=== PATIENT | female | born 1975 ===

== ENCOUNTER 2020-06-30 01:46 | Inpatient (IN) | payer OTHER ==
[~2020-06-30] VITALS: Ht 170.2 cm; Wt 75.5 kg
[2020-06-30 02:16] LABS: BASOPHILS # (AUTO) 0.01 x10^3/uL (0-0.1); BASOPHILS % (AUTO) 0 % (0-1); EOSINOPHILS # (AUTO) 0.05 x10^3/uL (0-0.4); EOSINOPHILS % (AUTO) 0 % (1-7); LYMPHOCYTES # (AUTO) 1.15 x10^3/uL (1-3.4); LYMPHOCYTES % (AUTO) 9 % (22-44); MD NO; MEAN CORPUSCULAR HEMOGLOBIN 33.4 pg (27.0-34.8); MEAN CORPUSCULAR HGB CONC 34.1 g/dL (32.4-35.8); MEAN PLATELET VOLUME 9.2 fL (7.4-10.4); MONOCYTES # (AUTO) 0.72 x10^3/uL (0.2-0.8); MONOCYTES % (AUTO) 6 % (2-9); NEUTROPHILS # (AUTO) 10.56 x10^3/uL (1.8-6.8); NEUTROPHILS % (AUTO) 85 % (42-75); PLATELET COUNT 218 x10^3/uL (130-400); RED BLOOD COUNT 4.04 x10^6/uL (3.82-5.3); RED CELL DISTRIBUTION WIDTH 13.1 % (9.6-15.2)
[2020-06-30] MEDS ORDERED: ONDANSETRON 2MG/ML, 2ML ONE (02:27)
[2020-06-30] MEDS ORDERED: MORPHINE SULFATE 4 MG/ML, 1ML ONE ×2 (02:27→04:09)
[2020-06-30 02:28] LABS: ALANINE AMINOTRANSFERASE 35 U/L (12-78); ALBUMIN 3.3 g/dL (3.4-5.0); ANION GAP 9 mmol/L (5-15); CALCIUM 8.8 mg/dL (8.5-10.1); CHLORIDE 106 mmol/L (98-107); CREATININE 0.75 mg/dL (0.55-1.02)
[2020-06-30] MEDS ORDERED: ONDANSETRON 2MG/ML, 2ML IVPush ONE (02:30)
[2020-06-30] MEDS ORDERED: PLEASE ENTER ALLERGIES MC SCH (02:30)
[2020-06-30] MEDS ORDERED: SODIUM CHLORIDE FLUSH 10ML SYR IVF ONE (02:30)
[2020-06-30 02:33] LABS: ALKALINE PHOSPHATASE 85 U/L (45-117); BILIRUBIN,TOTAL 0.2 mg/dL (0.2-1.0); TOTAL PROTEIN 7.4 g/dL (6.4-8.2)
[2020-06-30] MEDS: MORPHINE SULFATE 4 MG/ML, 1ML IVPush PRN ×2 (02:40→04:15)
--- NOTE | 2020-06-30 02:40 | NUR ---
PT TO ED WITH RIGHT SIDED ABDOMINAL PAIN, DENIES FLANK PAIN, OR URINARY SYMPTOMS. PT DENIES HX OF SAME. PT PLACED ON MONITORING, IV PLACED, MEDICATED PER MAR, CALL LIGHT WITHIN REACH, FAMILY AT BS FOR SUPPORT.
[2020-06-30 03:02] LABS: HCG UR SG 1.016 (1.003-1.030)
[2020-06-30] MEDS ORDERED: OMNIPAQUE 350 MG/ML, 100ML BOTTLE ONE (03:09)
[2020-06-30 03:13] LABS: MICROSCOPIC INDICATED
[2020-06-30] MEDS ORDERED: CEFTRIAXONE PMX 1GM/50ML 50 ML ONE (04:09)
[2020-06-30] MEDS: CEFTRIAXONE PMX 1GM/50ML 50 ML IV ONE ×2 (04:15→04:57)
--- NOTE | 2020-06-30 04:16 | NUR ---
AWAITING ABX DRAW PRIOR TO INTITIATING ABX.
--- NOTE | 2020-06-30 04:28 | NUR ---
REPORT GIVEN TO NIKKI DOWNS.
--- NOTE | 2020-06-30 04:29 | NUR ---
LAB IN ROOM AT THIS TIME TO DRAW BLOOD CULTURES.
--- NOTE | 2020-06-30 04:35 | NUR ---
REPORT FROM FRANCISCO JORDAN ASSUMING CARE OF PT AT THIS TIME
--- NOTE | 2020-06-30 04:57 | NUR ---
IV ABX STARTED PER PREVIOUS RN REPORT, CULUTRES DRAWN PRIOR. PT RESTING ON DAJUAN SAUL
[2020-06-30] MEDS ORDERED: PROMETHAZINE 25 MG/ML, 1ML IM PRN (05:00)
[2020-06-30] MEDS ORDERED: DOCUSATE 100 MG CAPSULE PO PRN (05:00)
[2020-06-30] MEDS ORDERED: morphine SULFATE 10 MG/ML, 1ML IVPush PRN (05:00)
[2020-06-30] MEDS ORDERED: BISACODYL 10 MG SUPP PR PRN (05:00)
[2020-06-30] MEDS ORDERED: ACETAMINOPHEN 325 MG TABLET PO PRN (05:00)
[2020-06-30] MEDS ORDERED: POLYETHYLENE GLYCOL 17 GM PACKET PO PRN (05:00)
[2020-06-30] MEDS ORDERED: ONDANSETRON 2MG/ML, 2ML IVPush PRN (05:00)
[2020-06-30] MEDS ORDERED: CEFTRIAXONE PMX 2GM/50ML 50 ML IV SCH (05:00)
[2020-06-30] MEDS ORDERED: ONDANSETRON ODT 4 MG PO PRN (05:00)
--- NOTE | 2020-06-30 05:28 | NUR ---
REPORT TO GI [facility]LOUD READY FOR TRANSPORT TO ROOM 365
[2020-06-30 06:09] VITALS: BP 112/76
[2020-06-30] MEDS: SODIUM CHLORIDE 0.9% 1,000 ML IV SCH ×3 (06:14→19:41)
[2020-06-30] MEDS: OXYcodone IR 5MG TABLET PO PRN ×3 (06:14→18:21)
[2020-06-30 13:34] VITALS: BP 108/73
[2020-06-30 20:16] VITALS: BP 105/62
[2020-07-01 02:51] VITALS: BP 107/73
[2020-07-01] MEDS: SODIUM CHLORIDE 0.9% 1,000 ML IV SCH (03:45)
[2020-07-01] MEDS ORDERED: CEFTRIAXONE PMX 2GM/50ML 50 ML IV SCH (05:00)
[2020-07-01 05:37] LABS: CHLORIDE 108 mmol/L (98-107)
[2020-07-01 05:45] LABS: BASOPHILS # (AUTO) 0.04 x10^3/uL (0-0.1); BASOPHILS % (AUTO) 1 % (0-1); EOSINOPHILS % (AUTO) 2 % (1-7); LYMPHOCYTES # (AUTO) 1.91 x10^3/uL (1-3.4); LYMPHOCYTES % (AUTO) 28 % (22-44); MD NO; MEAN CORPUSCULAR HEMOGLOBIN 33.5 pg (27.0-34.8); MEAN CORPUSCULAR HGB CONC 33.7 g/dL (32.4-35.8); MEAN PLATELET VOLUME 9.6 fL (7.4-10.4); MONOCYTES # (AUTO) 0.73 x10^3/uL (0.2-0.8); MONOCYTES % (AUTO) 11 % (2-9); NEUTROPHILS # (AUTO) 4.18 x10^3/uL (1.8-6.8); NEUTROPHILS % (AUTO) 60 % (42-75); PLATELET COUNT 190 x10^3/uL (130-400); RED BLOOD COUNT 3.83 x10^6/uL (3.82-5.3); RED CELL DISTRIBUTION WIDTH 13.2 % (9.6-15.2)
[2020-07-01 05:51] LABS: ALANINE AMINOTRANSFERASE 25 U/L (12-78); ALBUMIN 2.6 g/dL (3.4-5.0); ALKALINE PHOSPHATASE 75 U/L (45-117); ANION GAP 3 mmol/L (5-15); BILIRUBIN,TOTAL 0.5 mg/dL (0.2-1.0); CALCIUM 8.6 mg/dL (8.5-10.1); CHOL/HDL RATIO 1.9; CHOLESTEROL, TOTAL 146 mg/dL (140-239); CREATININE 0.66 mg/dL (0.55-1.02); HDL CHOL % 53 % (28-40); HDL CHOLESTEROL (DIRECT) 77 mg/dL (40-60); LDL CHOLESTEROL,CALCULATED 52 mg/dL (54-169); LDL/HDL RATIO 0.7 (0.5-3.0); TOTAL PROTEIN 6.3 g/dL (6.4-8.2); TRIGLYCERIDES 83 mg/dL (50-200); VLDL CHOLESTEROL 17 mg/dL (0-25)
[2020-07-01 06:54] VITALS: BP 115/75
[2020-07-01] MEDS ORDERED: CEFD300C37 PO (12:15)
[2020-07-01 13:15] VITALS: BP 132/87
== END 2020-07-01 13:39 | disposition home or self-care (01) | DRG 690 ==
LOC: ED 02:16 → EDIP 05:50 → 3N 05:53 → DCLOUNGE 07-01 13:31
PROVIDERS: ADMIT Internal Medicine; ATTEND Hospitalist
DX: N13.6 Pyonephrosis (principal); F17.200 Nicotine dependence, unspecified, uncomplicated; Z87.442 Personal history of urinary calculi; Z80.3 Family history of malignant neoplasm of breast
CPT/HCPCS: 36415; 74177; 80053; 80061; 81001; 81025; 83735; 84443; 84703; 85025; 87040; 87077; 87086; 87186; 87491; 87591; 96374; 99285; G0378; J0696; J2405; Q9967; J2270; J7030